=== PATIENT | female | born 1980 | race Caucasian/White ===

== ENCOUNTER → 2016-07-26 | Outpatient (CLI) | payer BC, OTHER ==
[~2016-07-26] MED LIST: IBUPROFEN 600600 M1 PO; LORTAB 5 MG/5001 TA1 PO; PRENATAL 1 PLU1 EACH PO; PRENATAL OR; ZOFRAN 4 MG ORAL4 MG PO
== END ==
LOC: RAD 15:29
DX: Z12.31 Encounter for screening mammogram for malignant neoplasm of breast (principal); R10.2 Pelvic and perineal pain

== ENCOUNTER → 2018-02-11 | Outpatient (CLI) | payer BC, OTHER | LOC: ULTRA 12:18 | DX: E04.2 Nontoxic multinodular goiter (principal) ==

== ENCOUNTER → 2020-04-13 | Outpatient (CLI) | payer BC, OTHER | LOC: CAT 09:41 | PROVIDERS: ATTEND Family Medicine | DX: R51.9 Headache, unspecified (principal); G89.29 Other chronic pain ==

== ENCOUNTER 2020-08-15 15:17 | Emergency (ER) | payer BC, OTHER ==
[~2020-08-15] VITALS: Ht 165.1 cm; Wt 122.5 kg
[2020-08-15] MEDS ORDERED: EXCEDRIN MIGRA1 EAC1 PO (15:30)
[2020-08-15] MEDS ORDERED: MUCINEX600 MG PO (15:30)
[2020-08-15 15:48] LABS: ABSOLUTE NEUTROPHILS 8.7 thou/uL (1.4-8.2); EOSINOPHILS 4.8 % (0.0-3.0); HEMATOCRIT 40.3 % (37.0-47.0); LYMPHOCYTES 19.1 % (24.0-44.0); MCH 30.4 pg (26.0-34.0); MCHC 34.7 g/dL (28.0-37.0); MCV 87.5 fL (80.0-100.0); MONOCYTES 4.4 % (1.0-8.0); PLATELET COUNT 306 thou/uL (150-400); POLYS 70.7 % (36.0-66.0); RBC 4.61 mil/uL (4.20-5.00); RDW 14.1 % (10.5-14.5); WBC 12.3 thou/uL (4.0-11.0)
[2020-08-15 15:54] LABS: ANION GAP 9 mmol/L (7-16); BUN 12 mg/dL (7-18); CALCIUM 9.6 mg/dL (8.5-10.1); CHLORIDE 104 mmol/L (98-107); CO2 29 mmol/L (21-32); CREATININE 0.9 mg/dL (0.6-1.0); GLUCOSE 97 mg/dL (74-106); POTASSIUM 3.8 mmol/L (3.5-5.1); SODIUM 142 mmol/L (136-145)
[2020-08-15 16:02] LABS: TROPONIN-I <0.06 ng/mL (<0.06)
[2020-08-15 16:56] VITALS: BP 123/72
--- NOTE | 2020-08-16 07:46 | EKG ---
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
== END 2020-08-15 16:58 | disposition home or self-care (01) ==
LOC: ER 15:17
PROVIDERS: Nurse Practitioner
DX: R07.89 Other chest pain (principal); Z98.890 Other specified postprocedural states; Z79.899 Other long term (current) drug therapy; Z79.82 Long term (current) use of aspirin